=== PATIENT | male | born 1980 | race Caucasian/White ===

== ENCOUNTER 2019-06-24 11:40 | Emergency (ER) | payer BC, MEDICAID ==
[~2019-06-24] VITALS: Ht 172.7 cm; Wt 77.1 kg
--- NOTE | 2019-06-24 11:49 | NUR ---
BIB [facility] [employer] AND [employer] [place] [employer],TEXTED FRIENDS SAYING GOOD BYE, VERBALIZED THAT HE "WAS LEANING ON HIS AND FAMILY FOR SO LONG", PATIENT STATED " I HAVE BEEN DEPRESSED MY ENTIRE LIFE,SINCE I WAS 5 YEARS OLD, MY CHILD DOES NOT WANT TO GO TO SCHOOL, MY AND I WORKS AT HOME AND WE CAN'T GET OUR WORK DONE BEC OF THE KID". DENIES SI/HI. TO ER BED 11. HOOKED TO MONITOR, CHANGED TO HOSP GOWN, PROVIDED W WARM BLANKET, PATIENT AO x 4, BREATHING EVEN AND UNLABORED, AWAITING MD CALDERA. WANDED BY XECURITY, KEPT SAFE AND COMFORTABLE. 1:1 SITTER AT BEDSIDE
--- NOTE | 2019-06-24 11:49 | NUR ---
DR SINGLETARY AT BEDSIDE
--- NOTE | 2019-06-24 12:01 | NUR ---
URINE SAMPLE SENT TO LAB
--- NOTE | 2019-06-24 12:06 | NUR ---
EDITOR & CO FOUNDER AT BEDSIDE
[2019-06-24 12:10] LABS: APPEARANCE,URINE Clear (CLEAR); BILIRUBIN,URINE Negative (NEGATIVE); BLOOD, URINE Negative Ery/uL (NEGATIVE); COLOR,URINE Yellow (YELLOW); KETONES,URINE Negative (NEGATIVE); LEUKOCYTE ESTERASE ,URINE Negative (NEGATIVE); NITRITE, URINE Negative (NEGATIVE); PROTEIN,URINE Negative (NEGATIVE); UGLUCOSE Negative (NEGATIVE); UROBILINOGEN,URINE 0.2 EU/dL (0.2)
[2019-06-24 12:12] LABS: BASOPHILS % (AUTO) 0.7 % (0.0-2.0); EOSINOPHILS % (AUTO) 0.5 % (0.0-6.0); HEMATOCRIT 44 % (39-51); HEMOGLOBIN 14.9 g/dL (13.5-17.5); LYMPHOCYTES # (AUTO) 1.3 /CMM (0.8-4.8); LYMPHOCYTES % (AUTO) 24.1 % (20.0-44.0); MEAN CORPUSCULAR HGB CONC 34 g/dl (31.0-36.0); MEAN CORPUSCULAR VOLUME 107 fL (80-96); MONOCYTES # (AUTO) 0.5 /CMM (0.1-1.30); MONOCYTES % (AUTO) 9.1 % (2.0-12.0); NEUTROPHILS # (AUTO) 3.4 /CMM (1.8-8.9); NEUTROPHILS % (AUTO) 65.6 % (43.0-81.0); PLATELET COUNT (AUTO) 202 /CMM (150-450); RED BLOOD CELL COUNT(AUTO) 4.07 MIL/uL (4.5-6.0); WHITE BLOOD COUNT (AUTO) 5.2 K/uL (4.3-11.0)
[2019-06-24 12:23] LABS: CALCIUM, SERUM 8.8 mg/dL (8.5-10.1); CREATININE 0.9 mg/dL (0.6-1.3); POTASSIUM 4.2 mmol/L (3.5-5.1)
[2019-06-24 12:29] LABS: ALBUMIN 3.9 g/dL (3.4-5.0); BILIRUBIN,DIRECT 0.1 mg/dL (0.0-0.2); BILIRUBIN,TOTAL 0.2 mg/dL (0.2-1.0); SALICYLATE 1.9 mg/dL (2.8-20.0); TOTAL PROTEIN, SERUM 7.5 g/dL (6.4-8.2)
[2019-06-24 14:06] LABS: EOSINOPHILS % (MANUAL) 1 % (0-4); LYMPHOCYTES % (MANUAL) 22 % (16-48); MONOCYTES % (MANUAL) 7 % (0-11.0); NEUTROPHILS % (MANUAL) 70 (42-76)
--- NOTE | 2019-06-24 14:40 | NUR ---
CALLED [facility] [phone] HE SAID HE IS NOT ON... CALLED [facility] [phone] ETA 60MINS.
--- NOTE | 2019-06-24 16:07 | NUR ---
[facility] [employer] CRISIS CONSUMER SAFETY INSPECTOR AT BEDSIDE
[2019-06-24 17:16] VITALS: BP 143/89
--- NOTE | 2019-06-24 17:16 | NUR ---
Patient discharged to home in stable condition. Written and verbal after care instructions given. Patient verbalizes understanding of instruction.
== END 2019-06-24 17:17 | disposition home or self-care (01) ==
LOC: ER 11:56
DX: F10.229 Alcohol dependence with intoxication, unspecified (principal); F32.9 Major depressive disorder, single episode, unspecified; F12.10 Cannabis abuse, uncomplicated; F13.10 Sedative, hypnotic or anxiolytic abuse, uncomplicated; F11.10 Opioid abuse, uncomplicated; Y90.6 Blood alcohol level of 120-199 mg/100 ml; Z98.890 Other specified postprocedural states
CPT/HCPCS: 36415; 80048; 80076; 80305; 80307; 80329; 81001; 85025; 99283; G0480; 81000-TC